=== PATIENT | female | born 1950 ===

== ENCOUNTER → 2024-06-13 13:11 | Outpatient (BNVA) | payer MEDICARE, MEDICAID, SELFPAY | PROVIDERS: Visit Provider Surgery | DX: K42.9 Umbilical hernia without obstruction or gangrene (principal); R03.0 Elevated blood-pressure reading, without diagnosis of hypertension | CPT/HCPCS: 99204 ==

== ENCOUNTER 2024-08-02 20:17 | Day surgery (SDC) | payer MEDICARE, MEDICAID, SELFPAY | END 2024-08-02 20:18 | disposition home or self-care (01) | LOC: SUR 20:18 | PROVIDERS: Visit Provider Surgery | DX: Z53.09 Procedure and treatment not carried out because of other contraindication (principal) ==